=== PATIENT | female | born 1945 | race Caucasian/White ===

== ENCOUNTER 2022-11-30 13:36 | Emergency (ER) | payer OTHER ==
[~2022-11-30] VITALS: Ht 157.5 cm; Wt 142.9 kg
[2022-11-30 13:52] VITALS: BP_SYST 191
[2022-11-30] MEDS ORDERED: METOCLOPRAMIDE HCL 10 MG/2 ML VIAL IM ONE (14:45)
[2022-11-30] MEDS ORDERED: KETOROLAC TROMETHAMINE 30 MG VIAL IM ONE (17:30)
[2022-11-30] MEDS ORDERED: IBUP-1969 PO (18:38)
[2022-11-30 18:45] VITALS: BP_SYST 174
== END 2022-11-30 18:45 | disposition home or self-care (01) ==
LOC: SED 13:36
DX: R51.9 Headache, unspecified (principal); Z79.899 Other long term (current) drug therapy
CPT/HCPCS: 99285; 70450; 76376; 96372; J1885; J2765

== ENCOUNTER 2024-03-04 07:57 | Day surgery (SDC) | payer OTHER ==
[~2024-03-04] VITALS: Ht 157.5 cm; Wt 149.7 kg
[~2024-03-04 07:57] MED LIST: IBUP-1969 PO
[2024-03-04] MEDS ORDERED: fentaNYL CITRATE/PF 100 MCG/2 ML AMP ONE (08:07)
[2024-03-04] MEDS ORDERED: MIDAZOLAM HCL 5 MG/5 ML VIAL ONE (08:07)
[2024-03-04 13:29] VITALS: O2SAT 95
[2024-03-04 16:40] VITALS: BP_SYST 85; PULSE 65; RESP 18
== END 2024-03-04 13:05 | disposition home or self-care (01) ==
LOC: SDS 07:57 → SMU 07:58 → SDS 13:05
PROVIDERS: ATTEND Internal Medicine Gastroenterology
DX: D49.0 Neoplasm of unspecified behavior of digestive system (principal); K29.50 Unspecified chronic gastritis without bleeding; B96.81 Helicobacter pylori [H. pylori] as the cause of diseases classified elsewhere; K25.9 Gastric ulcer, unspecified as acute or chronic, without hemorrhage or perforation; E66.01 Morbid (severe) obesity due to excess calories; E03.9 Hypothyroidism, unspecified; E78.00 Pure hypercholesterolemia, unspecified; Z87.891 Personal history of nicotine dependence; Z90.89 Acquired absence of other organs; Z68.44 Body mass index [BMI] 60.0-69.9, adult; Z79.82 Long term (current) use of aspirin; Z79.890 Hormone replacement therapy; Z79.899 Other long term (current) drug therapy
CPT/HCPCS: 43239; 99152; 87081; 36415; 88305; 88312; 88313; G0378; J2250; J3010